=== PATIENT | female | born 1935 | race Caucasian/White ===

== ENCOUNTER 2021-01-19 13:12 | Inpatient (IN) | payer MEDICARE, BC, MEDICAID ==
[~2021-01-19] VITALS: Ht 162.6 cm; Wt 54.4 kg
[~2021-01-19 13:12] MED LIST: ACETAMINOPHEN325 M1 PO; ANASPAZ0.125 MG SL; APAP500; ARICEPT10 M1 PO; ARICEPT10 MG PO; ASPIRIN EC81 M1 PO; ASPIRIN325; ASPIRIN325 PO; ATORVASTATIN CA40 MG PO; BAYER CHEWABLE81 MG PO; BENZTROPINE ME0.5 MG PO; BENZTROPINE MES1 MG; CALCARB PO; CALCITONIN-SAL3.7 ML NS; CALCIUM +D & M1 EACH PO; CALCIUM 600 +1 EA11 PO; CALCIUM 600 +1 EAC1 PO; CALCIUM 600 MG1 EAC2 PO; CENTRUM SILVER1 EAC1 PO; CHILDREN'S ASPI81 M1 PO; CLONAZEPAM; COLACE100 MG PO; CYPROHEPTADINE 44 M1 PO; DEPAKOTE 250MG250 M1 PO; DEPAKOTE500 MG PO; DOXYCYCLINE 10100 M1 PO; ENOXAPARIN30 MG/0.1 SUBQ; GENTAK 3 MG/M3 MG/M1 OP; GEODON; GEODON20 MG PO; GEODON60 MG PO; HYDROCODON-ACE1 EAC7 PO; HYDROCODONE-AP1 EAC6 PO; HYOSCYAMIN125 MCG/5 PO; LEVAQUIN 750 M750 MG PO; LEVOXYL112 MCG; LEVSIN-SL PO; LIDODERM 5%1 PATCH TOP; LOPRESSOR25; MACROBID 100 M100 M1 PO; MAG-OX 400 TAB400 M1 PO; MAG-OX PO; MAGOX 400400 MG PO; MEGACE ES625 MG/5 M PO; MIACALCIN; MOM PO; NEURONTIN600 MG PO; NORCO 5-325 TA1 EACH PO; NYSTATIN 1100000 U/M TOP; ONDANSETRON HCL4 M2 PO; PROTONIX40 M2 PO; SM CALCIUM PO; SYNTHROID88 MC1 PO; THERA-M CAPLET1 EAC1 PO; THERA-TABS M C1 EACH PO; TIROSINT75 MCG PO; TOPROL XL25 MG PO; TRIAMCINOLONE A80 G2 TOP; TYLENOL325 MG PO; VICODIN; VITAMIN D PO; VITAMIN D1000 UNI1; VITAMIN D1000 UNI1 PO; VYTORIN 10-401 EACH PO; [UNRECOGNIZED DRUG - CODE] PO; [UNRECOGNIZED DRUG - OTHER] NASAL
[2021-01-19 13:14] VITALS: BP 153/69
[2021-01-19] MEDS ORDERED: MELATONIN3 M1 PO (13:19)
[2021-01-19] MEDS ORDERED: FLEXERIL PO (13:20)
[2021-01-19 13:54] LABS: HEMATOCRIT 35.9 % (37.0-47.0); HEMOGLOBIN 12.1 gm/dL (12.0-15.0); MCHC 33.6 g/dL (28.0-37.0); MCV 92.4 fL (80.0-100.0); MPV 7.4 fl. (7.2-11.1); RBC 3.89 mil/uL (4.20-5.00); RDW-CV 13.5 % (10.5-14.5); WBC 11.2 thou/uL (4.0-11.0)
[2021-01-19 14:03] LABS: CALCIUM 9.6 mg/dL (8.5-10.1); CREATININE 1.1 mg/dL (0.6-1.3); POTASSIUM 3.4 mmol/L (3.5-5.1)
[2021-01-19 16:40] VITALS: BP 114/75
[2021-01-19 17:51] VITALS: BP 146/57
[2021-01-19 20:00] VITALS: BP 141/66
[2021-01-20 04:38] LABS: HEMATOCRIT 36.7 % (37.0-47.0); HEMOGLOBIN 12.3 gm/dL (12.0-15.0); MCH 30.8 pg (26.0-34.0); MCHC 33.5 g/dL (28.0-37.0); MPV 7.4 fl. (7.2-11.1); RBC 3.99 mil/uL (4.20-5.00); RDW-CV 13.9 % (10.5-14.5); WBC 11.9 thou/uL (4.0-11.0)
[2021-01-20 04:53] LABS: CALCIUM 9.3 mg/dL (8.5-10.1); CREATININE 0.9 mg/dL (0.6-1.3); POTASSIUM 3.9 mmol/L (3.5-5.1)
[2021-01-20 09:00] VITALS: BP 104/75
--- NOTE | 2021-01-20 10:55 | EKG ---
[place] [address] ELECTROCARDIOGRAM REPORT Name: SHYAMLESLIE Room: [address] ADM IN .R.#: [id number] Admission: 01/19/21 Attend Phys: Susana Joseph MD Discharge: Date of : 39 Date of Service: 01/19/21 1342 Report #: [id number] THIS REPORT FOR: //name// [facility] ED Test Date: 2021-01-19 Test Time: 13:42:29 Pat Name: LESLIE HOWE Department: Room: [facility] Gender: F Warp Hauler: : 1935 Requested By: Krari Martins Order Number: [id number] MD: Rolf Wilson Measurements Intervals [place] Rate: 77 P: 33 MO: 181 QRS: -29 QRSD: 150 T: -16 QT: 444 QTc: 503 Interpretive Statements Sinus rhythm Right bundle branch block Inferior infarct, old Probable anterior infarct, age indeterminate Compared to ECG 07/27/2016 18:35:31 Sinus tachycardia no longer present Electronically Signed On 01-20-2021 10:55:25 CDT by Rolf Wilson [email or web address] <ELECTRONICALLY SIGNED> By: Rolf Wilson MD, [facility] 01/20/21 1055 1342 1342 Rolf Wilson MD, [facility] /EPI
[2021-01-20 17:00] VITALS: BP 154/78
[2021-01-20 20:30] VITALS: BP 123/67
[2021-01-21 07:10] VITALS: BP 129/57
[2021-01-21 16:00] VITALS: BP 106/50
[2021-01-21 19:22] VITALS: BP 136/69
[2021-01-22] VITALS (15 sets, daily range): BP systolic 98–172; BP diastolic 55–82
== END 2021-01-22 17:50 | disposition hospice, home (50) | DRG 543 ==
LOC: M.ERS 13:12 → M.TBA-ER 15:17 → M.ORTHSURG 15:17
PROVIDERS: Emergency Medicine Emergency Medical Services; ADMIT Family Medicine; ATTEND Family Medicine
PROC: 07DR3ZX Extraction of Iliac Bone Marrow, Percutaneous Approach, Diagnostic (ICD-10-PCS; principal; 2021-01-22)
DX: M84.48XA Pathological fracture, other site, initial encounter for fracture (principal); C79.51 Secondary malignant neoplasm of bone; Z20.822 Contact with and (suspected) exposure to COVID-19; E03.9 Hypothyroidism, unspecified; K21.9 Gastro-esophageal reflux disease without esophagitis; F03.90 Unspecified dementia, unspecified severity, without behavioral disturbance, psychotic disturbance, mood disturbance, and anxiety; E87.6 Hypokalemia; R49.0 Dysphonia; M48.8X4 Other specified spondylopathies, thoracic region; Z66 Do not resuscitate; Z96.659 Presence of unspecified artificial knee joint; Z86.010 Personal history of colon polyps; Z88.0 Allergy status to penicillin; Z88.2 Allergy status to sulfonamides; Z88.7 Allergy status to serum and vaccine; Z88.8 Allergy status to other drugs, medicaments and biological substances; Z79.82 Long term (current) use of aspirin; Z79.899 Other long term (current) drug therapy